=== PATIENT | female | born 1955 | race Caucasian/White ===

== ENCOUNTER 2018-06-30 09:27 | Inpatient (IN) ==
--- NOTE | 2018-06-30 09:46 | Emergency Department Note ---
Disposition Clinical Impression: Confusion, Hepatic encephalopathy Disposition: Still a Patient Condition: Fair Referrals: Andrae Rodriguez Jr, MD [Primary Care Provider] - Forms: ED Satisfaction Letter Altered Mental Status HPI - General Chief Complaint: ED Altered Mental Status Stated Complaint: AMS Time Seen by Provider: 06/30/18 09:30 Source: EMS Limitations: altered mental status Nursing Notes Reviewed: Yes Vital Signs Reviewed: Yes - History of Present Illness HPI Narrative: 63-year-old female presents from home with bedside via EMS. She complaint of altered mental status per . Onset last night with some mild confusion. She was more confused this morning upon awakening. Patient was assisted by to bedside commode. She was unable to get up and required assistance back to bed. was unable to provude adequate assistance and slowly lowered the patient to the floor. She did not fall and did not hit her head. With the and son-in-law, they are unable to get the patient from the floor. Squad was called. Previously, patient is ambulatory under her own effort and would have been able to provide assistance. Patient was diagnosed with fatty liver disease August of this year by her primary care physician via ultrasound. Patient wears an adult depends. She does have a history of UTI. No history of CVA, TIA, seizure disorder. ROS: Positive: As above Negative: Fever, chills, nausea, vomiting, chest pains, palpitations, dyspnea, diaphoresis. - Related Data Home Medications Medication Instructions Recorded Confirmed Escitalopram [Lexapro] 20 mg PO QAM 07/14/16 06/30/18 GlipiZIDE XL (24 HR) [Glucotrol XL] 20 mg PO BID 07/14/16 06/30/18 Hyoscyamine SL [Levsin Sl] 0.125 - 0.25 mg SL QID PRN 07/14/16 06/30/18 Omeprazole [PriLOSEC] 40 mg PO BID 07/14/16 06/30/18 Docusate Sodium [Stool Softener] 100 mg PO BID PRN 12/01/17 06/30/18 LORazepam [Ativan] 0.5 mg PO BID PRN 12/01/17 06/30/18 OxyCODONE/APAP 10/325 [Percocet 1 tab PO Q3H PRN 12/01/17 06/30/18 10/325 MG] Donepezil [Aricept] 10 mg PO HS 06/30/18 06/30/18 Ferrous Sulfate 325 mg PO DAILY 06/30/18 06/30/18 Furosemide [Lasix] 40 mg PO BID 06/30/18 06/30/18 Insulin NPH Human Isophane 10 unit SQ QAM PRN 06/30/18 06/30/18 [Novolin N] Lactulose 30 ml PO BID 06/30/18 06/30/18 Metoprolol Succinate 25 mg PO DAILY 06/30/18 06/30/18 Promethazine [Phenergan] 25 mg PO QID PRN 06/30/18 06/30/18 Quetiapine Fumarate [Seroquel] 100 mg PO DAILY 06/30/18 06/30/18 Quetiapine Fumarate [Seroquel] 200 mg PO HS 06/30/18 06/30/18 Rifaximin [Xifaxan] 550 mg PO BID 06/30/18 06/30/18 Allergies Allergy/AdvReac Type Severity Reaction Status Date / Time Penicillins Allergy Hives Verified 06/30/18 09:39 aripiprazole [From Abilify] AdvReac See Verified 06/30/18 09:39 Comments ziprasidone [From Geodon] AdvReac See Verified 06/30/18 09:39 Comments novacain Allergy Hives Uncoded 06/30/18 09:39 All systems ED: reviewed and negative except as stated. Review of Systems: As Per HPI Past Medical History - Past Medical History Medical history: Reports: diabetes, GERD, hypertension, liver disease, other Surgical history: Reports: appendectomy, cholecystectomy, herniorrhaphy, other Psychiatric history: Reports: depression, previous psychiatric hospitalization - Social History Smoking Status: Never smoker Smokeless Tobacco Status: No Alcohol use: Reports: none Drug use: Reports: none Physical Exam Vital Signs Reviewed General: Patient is alert however is not oriented. She is moving purposelessly on the ED cot and is not able to follow simple commands by staff as they attempt to place monitoring lead pads. Head: atraumatic, normocephalic Eye: normal appearance, PERRL, EOMI, no scleral icterus, no conjunctival injection ENT: mucous membranes moist, normal external ear exam Neck: normal inspection, trachea midline, full ROM Chest: normal inspection, symmetric chest rise Respiratory: Good respiratory effort. Bilateral breath sounds are clear without wheezing, crackles, or rhonchi. Cardiovascular: Regular rate and rhythm. No clicks, rubs, gallops, or murmors. Normal heart sounds. Abdomen: Bowel sounds present normoactive x-4 quadrants. Abdomen is soft, nondistended, and nontender. No guarding or rebound. Musculoskeletal: Spontaneously moving all extremities. Skin: warm, dry, intact. Neuro: No asymmetry in strength of upper or lower extremities. No facial droop. No slurring of speech. Psych: Patient's affect is appropriate for situation. - General Limitations: altered mental status General appearance: alert Course Course Narrative: Patient presents in his clinically altered. Concern for multiple potential etiologies including UTI, hyperlipidemia. CVA or intracerebral incident unlikely however, will CT head. Anticipate admission for continued evaluation monitoring. Chart check shows ultrasound in August of this year. Radiology impression: US/US liver IMPRESSION: 1. Cirrhotic appearance of the liver without focal mass. 2. Status post cholecystectomy. D/ / 12/04/2017 13:54:12 Melchor Plaza MD / cathy Interpreting Provider: Melchor Plaza MD dated 06/30/2018 at 09:30 interpreted as sinus rhythm with a rate of 88. [place] 205, QRS 103, QTC 515. Slightly prolonged QT interval. Normal axis. Nonspecific ST-T changes. Compared to previous EKG dated 07/14/2016 showing no acute ischemic changes or comparison. Patient has hyperammonia anemia with ammonia level to a 6. We will begin lactulose. She is unable to sit still for CT scan. Will provide 1 mg IV Ativan with great caution given hepatic metabolism of Ativan. On reevaluation, patient continues to have purposeless movements. She is unable to undergo CT head at this time. Will provide a second dose of 1 mg Ativan. Serum ammonia is above 200 likely causing patient's altered mentation; diagnosis of hepatic encephalopathy. Will provide 20 g lactulose. Chest x-ray unremarkable, urinalysis unremarkable. Sodium and potassium the lateralized or unremarkable. Patient does have mild leukocytopenia. Mild anemia consistent with baseline level. I discussed the above with the patient's family at bedside. They are agreeable to admission for continued evaluation monitoring. I above with the admitting hospitalist, Dr. Gutierrez, who agrees to accept the patient for continued evaluation monitoring for hepatic encephalopathy. Vital Signs Temperature 98.9 F 06/30/18 09:32 Pulse Rate 85 06/30/18 09:32 Respiratory Rate 18 06/30/18 09:32 Blood Pressure 105/85 06/30/18 09:32 O2 Sat by Pulse Oximetry 100 06/30/18 09:32 Temperature 98.9 F 06/30/18 09:32 Pulse Rate 88 06/30/18 09:56 Respiratory Rate 18 06/30/18 09:56 Blood Pressure 129/68 06/30/18 09:56 O2 Sat by Pulse Oximetry 99 06/30/18 09:56 Oxygen Delivery Oxygen Delivery Room Air Altered Mental Status - Lab Data Result diagrams: 06/30/18 09:40 06/30/18 09:40 Lab Results 06/30/18 06/30/18 06/30/18 Range/Units 09:03 09:40 09:40 WBC 3.3 L (4.3-11.1) K/mcL RBC 3.45 L (3.82-4.97) M/mcL Hgb 11.1 L (11.5-15.4) g/dL Hct 33.1 L (35.3-44.9) % MCV 95.9 (83.0-100.0) fL MCH 32.2 (28.0-33.3) pg MCHC 33.5 (31.6-35.5) g/dL RDW 14.0 (11.5-14.5) % Plt Count 65 L (140-400) K/mcL MPV 9.2 L (9.4-12.4) fL Immature Gran % 0.3 (0-4) % Seg Neutrophils % 46.3 % Lymphocytes % 37.0 % Monocytes % 10.9 % Eosinophils % 5.2 % Basophils % 0.3 % Neutrophils # 1.5 L (1.6-8.9) K/mcL Lymphocytes # 1.2 (0.6-4.6) K/mcL Monocytes # 0.4 (0.0-1.3) K/mcL Eosinophils # 0.2 (0.0-0.6) K/mcL Basophils # 0.0 (0.0-0.2) K/mcL PT 14.7 H (9.4-12.1) Seconds INR 1.3 APTT 38.1 H (26.0-36.0) Seconds Sodium (136-145) mEq/L Potassium (3.5-5.1) mEq/L Chloride (98-107) mEq/L Carbon Dioxide (23-29) mEq/L BUN (8-23) mg/dL Creatinine (0.60-1.20) mg/dL Est GFR ( Amer) (> 60) Est GFR (Non-Af Amer) (> 60) BUN/Creatinine Ratio (6-26) Glucose (70-105) mg/dL POC Glucose (70-99) mg/dL Calculated Osmolality (280-300) Calcium (8.6-10.3) mg/dL Total Bilirubin (0.3-1.0) mg/dL Direct Bilirubin (0.0-0.2) mg/dL Indirect Bilirubin (0.0-1.2) mg/dL AST (13-39) Units/L ALT (7-52) Units/L Alkaline Phosphatase (34-104) Units/L Ammonia 206 H (16-53) mcmol/L Troponin I (< 0.04) ng/mL Serum Total Protein (6.4-8.9) g/dL Albumin (3.5-5.7) g/dL Globulin (2.4-3.5) g/dL Albumin/Globulin Ratio (1.1-2.2) TSH (0.340-5.600) mcIU/mL 06/30/18 06/30/18 Range/Units 09:40 10:08 WBC (4.3-11.1) K/mcL RBC (3.82-4.97) M/mcL Hgb (11.5-15.4) g/dL Hct (35.3-44.9) % MCV (83.0-100.0) fL MCH (28.0-33.3) pg MCHC (31.6-35.5) g/dL RDW (11.5-14.5) % Plt Count (140-400) K/mcL MPV (9.4-12.4) fL Immature Gran % (0-4) % Seg Neutrophils % % Lymphocytes % % Monocytes % % Eosinophils % % Basophils % % Neutrophils # (1.6-8.9) K/mcL Lymphocytes # (0.6-4.6) K/mcL Monocytes # (0.0-1.3) K/mcL Eosinophils # (0.0-0.6) K/mcL Basophils # (0.0-0.2) K/mcL PT (9.4-12.1) Seconds INR APTT (26.0-36.0) Seconds Sodium 143 (136-145) mEq/L Potassium 3.5 (3.5-5.1) mEq/L Chloride 103 (98-107) mEq/L Carbon Dioxide 31 H (23-29) mEq/L BUN 12 (8-23) mg/dL Creatinine 0.76 (0.60-1.20) mg/dL Est GFR ( Amer) > 60 (> 60) Est GFR (Non-Af Amer) > 60 (> 60) BUN/Creatinine Ratio 16 (6-26) Glucose 133 H (70-105) mg/dL POC Glucose 136 H (70-99) mg/dL Calculated Osmolality 298 (280-300) Calcium 8.5 L (8.6-10.3) mg/dL Total Bilirubin 1.7 H (0.3-1.0) mg/dL Direct Bilirubin 0.5 H (0.0-0.2) mg/dL Indirect Bilirubin 1.2 (0.0-1.2) mg/dL AST 30 (13-39) Units/L ALT 13 (7-52) Units/L Alkaline Phosphatase 91 (34-104) Units/L Ammonia (16-53) mcmol/L Troponin I < 0.03 (< 0.04) ng/mL Serum Total Protein 6.8 (6.4-8.9) g/dL Albumin 2.9 L (3.5-5.7) g/dL Globulin 3.9 H (2.4-3.5) g/dL Albumin/Globulin Ratio 0.7 L (1.1-2.2) TSH 0.863 (0.340-5.600) mcIU/mL TPA Checklist - LKW: 3-4.5 hrs Add. Warnings/Precautions Patient/family understanding: The patient/family members have been counseled and understood the risk, benefit, and alternatives of treatment.
[2018-06-30 10:04] LABS: Basophils % 0.3 %; Eosinophils # 0.2 K/mcL (0.0-0.6); Eosinophils % 5.2 %; Hematocrit 33.1 % (35.3-44.9); Hemoglobin 11.1 g/dL (11.5-15.4); Immature Granulocytes % 0.3 % (0-4); Lymphocytes # 1.2 K/mcL (0.6-4.6); Mean Corpuscular HGB Conc 33.5 g/dL (31.6-35.5); Mean Corpuscular Hemoglobin 32.2 pg (28.0-33.3); Mean Corpuscular Volume 95.9 fL (83.0-100.0); Mean Platelet Volume 9.2 fL (9.4-12.4); Monocytes # 0.4 K/mcL (0.0-1.3); Monocytes % 10.9 %; Neutrophils # 1.5 K/mcL (1.6-8.9); Platelet Count 65 K/mcL (140-400); Red Blood Count 3.45 M/mcL (3.82-4.97); Segmented Neutrophils % 46.3 %
[2018-06-30 10:12] LABS: INR 1.3; Prothrombin Time 14.7 Seconds (9.4-12.1)
[2018-06-30 10:15] LABS: Activated Partial Thrombo Time 38.1 Seconds (26.0-36.0)
[2018-06-30 10:28] LABS: Troponin I < 0.03 ng/mL (< 0.04)
[2018-06-30 10:35] LABS: Alanine Aminotransferase 13 Units/L (7-52); Albumin 2.9 g/dL (3.5-5.7); Albumin/Globulin Ratio 0.7 (1.1-2.2); Alkaline Phosphatase 91 Units/L (34-104); Aspartate Amino Transferase 30 Units/L (13-39); BUN/Creatinine Ratio 16 (6-26); Bilirubin,Direct 0.5 mg/dL (0.0-0.2); Bilirubin,Indirect 1.2 mg/dL (0.0-1.2); Bilirubin,Total 1.7 mg/dL (0.3-1.0); Blood Urea Nitrogen 12 mg/dL (8-23); Calcium 8.5 mg/dL (8.6-10.3); Carbon Dioxide 31 mEq/L (23-29); Chloride 103 mEq/L (98-107); Globulin 3.9 g/dL (2.4-3.5); Glucose 133 mg/dL (70-105); Osmolality,Calculated 298 (280-300); Potassium 3.5 mEq/L (3.5-5.1); Sodium 143 mEq/L (136-145); Total Protein 6.8 g/dL (6.4-8.9); eGFR For Non-African Americans > 60 (> 60)
[2018-06-30] MEDS ORDERED: Lactulose Oral Soln 20 GM/30 ML UDC PO ONE ×2 (10:40→12:15)
[2018-06-30 10:41] LABS: Thyroid Stimulating Hormone 0.863 mcIU/mL (0.340-5.600)
[2018-06-30] MEDS ORDERED: *HR* LORazepam 2 MG/ML VIAL IVP STA (10:41)
[2018-06-30] MEDS ORDERED: *HR* LORazepam 2 MG/ML VIAL IVP ONE ×2 (11:50→23:57)
--- NOTE | 2018-06-30 12:12 | Internal Med History&Physical ---
Date of Encounter: 06/30/18 Time of Encounter: 12:10 Internal Medicine - H&P: HPI Chief complaint: Confusion Admitted From: Home Plans for Post Hospital Care: Home History of present illness: Ms. Romero is a 63 year old female with medical history of hypertension, depression and anxiety, chronic opiate dependence, fatty liver disease with cirrhosis, chronic leukopenia and thrombocytopenia Patient is seen and evaluated at the bedside with her partner At the time of review, patient is thrashing around in bed attempting to get out of bed and requesting to use the bathroom. She is completely disoriented and is unable to provide a history. According to her partner for the past 2 years the patient has been having multiple episodes of confusion, multiple recurrent falls and was recently diagnosed by her primary care physician this year of liver cirrhosis due to fatty liver. He reports that she has been having more confusion during the and awake at night since May, but he presented to the emergency room across the patient was not improving. The patient takes lactulose at home daily, and according to her partner she had multiple bowel movements yesterday. But her mental status has continued to worsen. He denies fever or chills, he reports he had a following up with neurology in this facility, concerning patient's chronic encephalopathy and also with oncology for patient's chronic leukopenia and thrombocytopenia. He denies any recent falls, he denies any trauma, he reports compliance with her psychiatric and pain medications as well as benzodiazepines, there has been no recent changes to her medication. Workup in the emergency room shows an unremarkable chest x-ray and EKG, liver function tests is at baseline, leukopenia and thrombocytopenia are at baseline, renal function tests is normal, coagulation panel with elevated PT 14.7, INR 5.3. Ammonia 206 Urine analysis is unremarkable for infection TSH is within normal limit The ER was unable to do any head imaging due to patient's restlessness despite receiving 2 doses of IV Ativan. The patient will be admitted as inpatient for acute on chronic encephalopathy likely due to hepatic encephalopathy. Her partner at the bedside states she has no advance directives, she is full code. Past Med Surg Social Fam HX - Past Medical History Medical history: diabetes, GERD, hypertension, liver disease, other Additional medical history: IBS Psychiatric history: depression, previous psychiatric hospitalization - Past Surgical History Surgical History: appendectomy, cholecystectomy, herniorrhaphy, other - Social History Smoking Status: Never smoker Smokeless Tobacco Status: No Alcohol use: none Drug use: none Internal Medicine - H&P: Meds Escitalopram [Lexapro] 20 mg PO QAM 07/14/16 [History] GlipiZIDE XL (24 HR) [Glucotrol XL] 20 mg PO BID 07/14/16 [History] Hyoscyamine SL [Levsin Sl] 0.125 - 0.25 mg SL QID PRN 07/14/16 [History] Omeprazole [PriLOSEC] 40 mg PO BID 07/14/16 [History] Docusate Sodium [Stool Softener] 100 mg PO BID PRN 12/01/17 [History] LORazepam [Ativan] 0.5 mg PO BID PRN 12/01/17 [History] OxyCODONE/APAP 10/325 [Percocet 10/325 MG] 1 tab PO Q3H PRN 12/01/17 [History] Donepezil [Aricept] 10 mg PO HS 06/30/18 [History] Ferrous Sulfate 325 mg PO DAILY 06/30/18 [History] Furosemide [Lasix] 40 mg PO BID 06/30/18 [History] Insulin NPH Human Isophane [Novolin N] 10 unit SQ QAM PRN 06/30/18 [History] Lactulose 30 ml PO BID 06/30/18 [History] Metoprolol Succinate 25 mg PO DAILY 06/30/18 [History] Promethazine [Phenergan] 25 mg PO QID PRN 06/30/18 [History] Quetiapine Fumarate [Seroquel] 100 mg PO DAILY 06/30/18 [History] Quetiapine Fumarate [Seroquel] 200 mg PO HS 06/30/18 [History] Rifaximin [Xifaxan] 550 mg PO BID 06/30/18 [History] Allergy/AdvReac Type Severity Reaction Status Date / Time Penicillins Allergy Hives Verified 06/30/18 09:39 aripiprazole [From Abilify] AdvReac See Verified 06/30/18 09:39 Comments ziprasidone [From Geodon] AdvReac See Verified 06/30/18 09:39 Comments novacain Allergy Hives Uncoded 06/30/18 09:39 ROS unobtainable: due to mental status All Systems PM: A 10-system review of systems was performed and is negative for pertinent findings except as documented above in the HPI. - Constitutional Vitals: Temp Pulse Resp BP Pulse Ox 98.9 F 88 18 129/68 99 06/30/18 09:32 06/30/18 09:56 06/30/18 09:56 06/30/18 09:56 06/30/18 09:56 General appearance: Present: A&O X 0 (Completely disoriented, uncooperative, thrashing around in bed) Exam: confused, with comprehensible speech requesting for morbid attendants, disoriented - Head Head exam: Present: atraumatic - Eye Eye exam: Present: conjuntiva pink, sclera anicteric - ENT ENT exam: Present: mucous membranes moist - Neck Neck exam general surgery: Present: normal inspection - Respiratory Respiratory exam: Present: CTAB - Cardiovascular Cardiovascular exam: Present: RRR, +S1, +S2. Absent: systolic murmur - GI/Abdominal GI/Abdominal exam: Present: normal bowel sounds, soft, no peritoneal signs. Absent: guarding, tenderness - Extremities Exam Extremities exam: Present: normal inspection. Absent: pedal edema - Neurological Exam Neurological exam: Present: altered. Absent: pronater drift, facial droop, speech deficit - Psychiatric Psychiatric exam: Present: agitated - Skin Skin exam: Present: normal color. Absent: rash Internal Med - H&P Results - Labs CBC & Chem 7: 06/30/18 09:40 06/30/18 09:40 Labs: Short CBC 06/30/18 Range/Units 09:40 WBC 3.3 L (4.3-11.1) K/mcL Hgb 11.1 L (11.5-15.4) g/dL Hct 33.1 L (35.3-44.9) % Plt Count 65 L (140-400) K/mcL Neutrophils # 1.5 L (1.6-8.9) K/mcL BMP 06/30/18 09:40 Sodium 143 Potassium 3.5 Chloride 103 Carbon Dioxide 31 H BUN 12 Creatinine 0.76 Glucose 133 H Calcium 8.5 L Cardiac Enzymes 06/30/18 Range/Units 09:40 Troponin I < 0.03 (< 0.04) ng/mL Liver Function 06/30/18 Range/Units 09:40 Total Bilirubin 1.7 H (0.3-1.0) mg/dL Direct Bilirubin 0.5 H (0.0-0.2) mg/dL AST 30 (13-39) Units/L ALT 13 (7-52) Units/L Alkaline Phosphatase 91 (34-104) Units/L Albumin 2.9 L (3.5-5.7) g/dL - Impressions ITS Impressions Chest X-Ray 06/30/18 09:40 IMPRESSION: No evidence for acute cardiopulmonary process. D/ / Daniele Davis MD / Daniele Davis MD Interpreting Provider: Daniele Davis MD - Assessment and plan (1) Acute metabolic encephalopathy Current Visit: Yes Status: Acute Assessment and plan: Patient with chart review showing multiple episodes of encephalopathy in this facility, negative Gabriela mutation, recurrent falls and dementia, Cirrhotic liver with documentation of encephalopathy in nearly all visits Following up with Neurology per , will consult Ammonia level 206 No UA done, will request, place Herbert EEG done in 06/29/2018 showed moderate generalized encephalopathy, commonly associated with hepatic or renal etiologies EEG 10/[address] pending, patient unable to stay still, myrtle request imaging when patient is more sedated Continue lactulose TID to achieve 3-4 bowel movements daily Give lactulose enema STAT Patient is protecting her airway Aspiration and Fall precautions Patient is high risk of decompensation , airway compromise She is full code (2) Liver cirrhosis Current Visit: Yes Status: Chronic Assessment and plan: Will obtain USS to assess for ascites when patient is more stable No ascites demonstrable on exam Qualifiers: Qualified Code(s): K74.60 - Unspecified cirrhosis of liver (3) [place]'s disease Current Visit: Yes Status: Suspected Assessment and plan: Rued out per testing, test reported as patient haciving 2 normal alleles neurology consulted (4) Anxiety Current Visit: Yes Status: Chronic Assessment and plan: Continue home meds Monitor for BZP withdrawal (5) DVT prophylaxis Current Visit: Yes Status: Acute Assessment and plan: SCDs, due to thrombocytopenia (6) Depression Current Visit: Yes Status: Chronic Assessment and plan: Continue home meds Qualifiers: Qualified Code(s): F32.9 - Major depressive disorder, single episode, unspecified (7) Chronic pain syndrome Current Visit: Yes Status: Chronic Assessment and plan: Continue home opiates Monitor for withdrawals (8) Diabetes Current Visit: Yes Status: Chronic Assessment and plan: Sliding scale insulin for now FSACHS ADA diet, as tolerated Qualifiers: Qualified Code(s): E11.9 - Type 2 diabetes mellitus without complications; Z79.4 - roasterman (current) use of insulin (9) Leukopenia Current Visit: Yes Status: Chronic Assessment and plan: Chronic, stable Qualifiers: Qualified Code(s): D72.819 - Decreased white blood cell count, unspecified (10) Thrombocytopenia Current Visit: Yes Status: Chronic Assessment and plan: Chronic, stable (11) Morbid obesity Current Visit: Yes Status: Chronic Assessment and plan: Lifestyle modification - Time Spent With Patient Total time spent is greater than 50% in coordination of care (as documented) at patient's floor/unit and/or counseling patient:
[2018-06-30] MEDS ORDERED: Naloxone 0.4 MG/ML INJ IVP PRN (12:13)
[2018-06-30] MEDS ORDERED: Dextrose Gel 15 GM/37.5 ML TUBE PO PRN ×2 (12:21)
[2018-06-30] MEDS ORDERED: D5% in Water 1,000 ML IVC PRN (12:21)
[2018-06-30] MEDS ORDERED: *HR* Dextrose 50 % in Water (Syg) 50 ML SYRINGE IVP PRN (12:21)
[2018-06-30] MEDS ORDERED: Lactulose 200 GM, Sodium Chloride IRRigation 700 ML RC ONE (15:14)
--- NOTE | 2018-06-30 15:24 | Neurology - Consult Note ---
<Abhi Junior - Last Filed: 06/30/18 15:17> Date of Encounter: 06/30/18 Time of Encounter: 15:19 Assessment and Plan (1) Acute metabolic encephalopathy Current Visit: Yes Status: Acute Likely is acute hepatic encephalopathy with baseline dementia. Patient's ammonia level is 206. And patient does not comply with her lactulose medication as well as does not have 3 to 6 bowel movements a day. We would like to obtain a CT of the head but this has been difficult as patient is very restless. She follows Dr. Tristan, neurologist and has been worked up for dementia, is on Aricept. She had a recent EEG which showed moderate metabolic encephalopathy secondary to hepatic or renal etiology. (2) Liver cirrhosis Current Visit: Yes Status: Chronic Qualifiers: Hepatic cirrhosis type: unspecified hepatic cirrhosis Ascites presence: unspecified Qualified Code(s): K74.60 - Unspecified cirrhosis of liver History of Present Illness Chief complaint: ams HPI: Ms. Romero is a 63 year old female with history of cirrhosis secondary to fatty liver disease presents with chief complaint of altered mental status. Her reports that patient woke up this morning and was nonverbal, awake but did not respond to any of his questions and did not talk to him. The night before patient was verbal, ambulated independently and alert and oriented 3. Currently during my examination patient is in bed very agitated, eyes open, not responding to any questions or commands. Patient has a history of dementia is on Aricept and it follows Dr. Tristan. She has had recent EEG that shows moderate encephalopathy which is associated with hepatic and renal etiologies. According to patient takes rifaximin every day but does not take lactulose every day. Her last bowel movement was yesterday and she rarely has more than 2 or 3 bowel movements a week. The emergency department patient's ammonia level was found to be 206, TSH was within normal limits. They were unable to obtain CT of the head as patient was very restless even after giving 2 doses of Ativan. Past Med Surg Social Fam HX - Past Medical History Medical history: diabetes, GERD, hypertension, liver disease, other Additional medical history: IBS Psychiatric history: depression, previous psychiatric hospitalization - Past Surgical History Surgical History: appendectomy, cholecystectomy, herniorrhaphy, other - Social History Smoking Status: Never smoker Smokeless Tobacco Status: No Alcohol use: none Drug use: none Medications and Allergies Escitalopram [Lexapro] 20 mg PO QAM 07/14/16 [History] GlipiZIDE XL (24 HR) [Glucotrol XL] 20 mg PO BID 07/14/16 [History] Hyoscyamine SL [Levsin Sl] 0.125 - 0.25 mg SL QID PRN 07/14/16 [History] Omeprazole [PriLOSEC] 40 mg PO BID 07/14/16 [History] Docusate Sodium [Stool Softener] 100 mg PO BID PRN 12/01/17 [History] LORazepam [Ativan] 0.5 mg PO BID PRN 12/01/17 [History] OxyCODONE/APAP 10/325 [Percocet 10/325 MG] 1 tab PO Q3H PRN 12/01/17 [History] Donepezil [Aricept] 10 mg PO HS 06/30/18 [History] Ferrous Sulfate 325 mg PO DAILY 06/30/18 [History] Furosemide [Lasix] 40 mg PO BID 06/30/18 [History] Insulin NPH Human Isophane [Novolin N] 10 unit SQ QAM PRN 06/30/18 [History] Lactulose 30 ml PO BID 06/30/18 [History] Metoprolol Succinate 25 mg PO DAILY 06/30/18 [History] Promethazine [Phenergan] 25 mg PO QID PRN 06/30/18 [History] Quetiapine Fumarate [Seroquel] 100 mg PO DAILY 06/30/18 [History] Quetiapine Fumarate [Seroquel] 200 mg PO HS 06/30/18 [History] Rifaximin [Xifaxan] 550 mg PO BID 06/30/18 [History] Allergy/AdvReac Type Severity Reaction Status Date / Time Penicillins Allergy Hives Verified 06/30/18 09:39 aripiprazole [From Abilify] AdvReac See Verified 06/30/18 09:39 Comments ziprasidone [From Geodon] AdvReac See Verified 06/30/18 09:39 Comments novacain Allergy Hives Uncoded 06/30/18 09:39 ROS unobtainable: due to mental status All Systems: The remainder of the systems were reviewed and are negative Physical Examination - Vital Signs Vital Signs: Initial Vital Signs Temp Pulse Resp BP Pulse Ox 98.9 F 85 18 105/85 100 06/30/18 09:32 06/30/18 09:32 06/30/18 09:32 06/30/18 09:32 06/30/18 09:32 - Exam Exam: General: pleasant, without distress HEENT: Head atraumatic, normocephalic, unable to examine due to patient's mental status Neck: nontender to palpation, absent lymphadenopathy, Cardiovascualr: Regular rate and rhythm with no murmur, absent gallops or rubs, absent pedal edema, radial pulses 2 out of 4 Lungs: Clear to auscultation bilaterally, not in respiratory distress Abdomen: Soft nontender, nondistended positive bowel sounds, Skin: warm and dry, absent rash, absent open wounds and nodules MSK: absent clubbing, cyanosis, joints without swelling Psych: She takes, restless - Constitutional General appearance: uncomfortable - Neurologic Mental Status Examination: Patient is restless, not responding to verbal commands or answering any questions. Neurological exam is very limited secondary to this. She is able to move all 4 extremities as seen she grabs onto her bed and tries to sit up. Her eyes are open spontaneously. GCS 10. Results - Laboratory Findings CBC and BMP: 06/30/18 09:40 06/30/18 09:40 Abnormal lab findings: Abnormal lab results WBC 3.3 K/mcL (4.3-11.1) L 06/30/18 09:40 RBC 3.45 M/mcL (3.82-4.97) L 06/30/18 09:40 Hgb 11.1 g/dL (11.5-15.4) L 06/30/18 09:40 Hct 33.1 % (35.3-44.9) L 06/30/18 09:40 Plt Count 65 K/mcL (140-400) L 06/30/18 09:40 MPV 9.2 fL (9.4-12.4) L 06/30/18 09:40 Neutrophils # 1.5 K/mcL (1.6-8.9) L 06/30/18 09:40 PT 14.7 Seconds (9.4-12.1) H 06/30/18 09:40 APTT 38.1 Seconds (26.0-36.0) H 06/30/18 09:40 Carbon Dioxide 31 mEq/L (23-29) H 06/30/18 09:40 Glucose 133 mg/dL (70-105) H 06/30/18 09:40 POC Glucose 136 mg/dL (70-99) H 06/30/18 10:08 Calcium 8.5 mg/dL (8.6-10.3) L 06/30/18 09:40 Total Bilirubin 1.7 mg/dL (0.3-1.0) H 06/30/18 09:40 Direct Bilirubin 0.5 mg/dL (0.0-0.2) H 06/30/18 09:40 Ammonia 206 mcmol/L (16-53) H 06/30/18 09:03 Albumin 2.9 g/dL (3.5-5.7) L 06/30/18 09:40 Globulin 3.9 g/dL (2.4-3.5) H 06/30/18 09:40 Albumin/Globulin Ratio 0.7 (1.1-2.2) L 06/30/18 09:40 Consult Discharge Plan - Plan Referrals: Maty Celestin [Resident] - 07/28/18 4:20 pm Andrae Rodriguez Jr, MD [Primary Care Provider] - 07/15/18 9:15 am James Tristan DO [Partnered Physician] - 09/30/18 9:45 am <Shira Larose I - Last Filed: 07/01/18 12:05> Date of Encounter: 06/30/18 Assessment and Plan (1) Acute metabolic encephalopathy Current Visit: Yes Status: Acute Pt was seen and examined, my medical decision was reviewed with the Resident Physician, I agree with the documented findings, disposition and treatment plas as described except to the extent set forth below. Limited neurological examination as patient is very restless shows just received an Ativan we may have to increase the dosage once a stable suggest getting a CT scan of the head she just had a EEG as an outpatient we will review it other treatment is as per primary team is strongly recommend starting her back on lactulose as Hyper ammonimia is likely the reason for her acute mental status changes Shira Larose MD History of Present Illness HPI: Ms. Romero is a 63 year old female All Systems: The remainder of the systems were reviewed and are negative Physical Examination - Vital Signs Vital Signs: Initial Vital Signs Temp Pulse Resp BP Pulse Ox 98.9 F 85 18 105/85 100 06/30/18 09:32 06/30/18 09:32 06/30/18 09:32 06/30/18 09:32 06/30/18 09:32 Results - Laboratory Findings CBC and BMP: 07/01/18 04:21 07/01/18 04:21 Abnormal lab findings: Abnormal lab results RBC 3.40 M/mcL (3.82-4.97) L 07/01/18 04:21 Hgb 11.0 g/dL (11.5-15.4) L 07/01/18 04:21 Hct 32.4 % (35.3-44.9) L 07/01/18 04:21 Plt Count 70 K/mcL (140-400) L 07/01/18 04:21 PT 14.7 Seconds (9.4-12.1) H 06/30/18 09:40 APTT 38.1 Seconds (26.0-36.0) H 06/30/18 09:40 Potassium 3.2 mEq/L (3.5-5.1) L 07/01/18 04:21 POC Glucose 160 mg/dL (70-99) H 06/30/18 20:18 Total Bilirubin 2.5 mg/dL (0.3-1.0) H 07/01/18 04:21 Direct Bilirubin 0.5 mg/dL (0.0-0.2) H 06/30/18 09:40 AST 383 Units/L (13-39) H 07/01/18 04:21 Ammonia 206 mcmol/L (16-53) H 06/30/18 09:03 Albumin 3.1 g/dL (3.5-5.7) L 07/01/18 04:21 Globulin 3.8 g/dL (2.4-3.5) H 07/01/18 04:21 Albumin/Globulin Ratio 0.8 (1.1-2.2) L 07/01/18 04:21 Urine Blood Trace (Negative) H 06/30/18 18:07 Urine Bilirubin Small (Negative) H 06/30/18 18:07 Urine Urobilinogen >=8.0 mg/dL (Normal) H 06/30/18 18:07 Ur Squamous Epith Cells Many per lpf (None-Few) H 06/30/18 18:07
[2018-06-30 18:23] LABS: Bilirubin,Urine Small (Negative); Blood,Urine Trace (Negative); Clarity,Urine Clear (Clear); Color,Urine Dark Yellow (Yellow); Glucose,Urine (UA) Normal (Normal); Ketones,Urine Negative (Negative); Leukocyte Esterase,Urine Negative (Negative); Nitrite,Urine Negative (Negative); Protein,Urine Negative (Neg-Trace); Specific Gravity,Urine 1.011 (1.010-1.025); Urobilinogen,Urine >=8.0 mg/dL (Normal)
[2018-06-30 18:26] LABS: Bacteria,Urine None Seen per hpf (None-Few); Hyaline Casts,Urine None Seen per lpf (None-Few); Squamous Epithelial Cell,Urine Many per lpf (None-Few); WBC,Urine 0-3 per hpf (0-3)
[2018-06-30 18:48] LABS: RBC,Urine 0-3 per hpf (0-3)
[2018-06-30] MEDS: Insulin LISPRO 300 UNITS/3 ML VIAL SQ SCH ×2 (19:07→21:47)
[2018-06-30] MEDS: Lactulose Oral Soln 20 GM/30 ML UDC PO SCH (21:23)
[2018-06-30] MEDS: *HR* LORazepam 0.5 MG TABLET PO SCH (21:26)
[2018-07-01] MEDS ORDERED: *HR* LORazepam 2 MG/ML VIAL ONE (00:02)
[2018-07-01 05:10] LABS: Lymphocytes % 23.1 %; Mean Corpuscular Hemoglobin 32.4 pg (28.0-33.3); Red Cell Distribution Width 14.3 % (11.5-14.5)
[2018-07-01 05:12] LABS: Basophils % 0.3 %; Eosinophils # 0.1 K/mcL (0.0-0.6); Eosinophils % 1.4 %; Hematocrit 32.4 % (35.3-44.9); Immature Granulocytes % 0.7 % (0-4); Immature Platelets 1.2 % (1.1-6.1); Lymphocytes # 1.4 K/mcL (0.6-4.6); Mean Corpuscular Volume 95.3 fL (83.0-100.0); Monocytes # 0.7 K/mcL (0.0-1.3); Monocytes % 12.2 %; Neutrophils # 3.7 K/mcL (1.6-8.9); Segmented Neutrophils % 62.3 %
[2018-07-01 05:13] LABS: Platelet Count 70 K/mcL (140-400)
[2018-07-01 05:34] LABS: Alanine Aminotransferase 47 Units/L (7-52); Albumin 3.1 g/dL (3.5-5.7); Albumin/Globulin Ratio 0.8 (1.1-2.2); Alkaline Phosphatase 83 Units/L (34-104); Aspartate Amino Transferase 383 Units/L (13-39); BUN/Creatinine Ratio 18 (6-26); Bilirubin,Total 2.5 mg/dL (0.3-1.0); Blood Urea Nitrogen 12 mg/dL (8-23); Calcium 9.1 mg/dL (8.6-10.3); Carbon Dioxide 27 mEq/L (23-29); Chloride 106 mEq/L (98-107); Chol/HDL Ratio 2.6 (0-4.9); Cholesterol 105 mg/dL (< 200); Globulin 3.8 g/dL (2.4-3.5); Glucose 102 mg/dL (70-105); HDL Cholesterol 40 mg/dL (40-59); LDL Cholesterol,Calculated 49 mg/dL (0-99); Osmolality,Calculated 298 (280-300); Potassium 3.2 mEq/L (3.5-5.1); Sodium 144 mEq/L (136-145); Total Protein 6.9 g/dL (6.4-8.9); Triglycerides 82 mg/dL (< 150); eGFR For Non-African Americans > 60 (> 60)
[2018-07-01] MEDS: Metoprolol XL (24 HR) Succ 25 MG TAB.ER.24H PO SCH (08:15)
[2018-07-01] MEDS: Lactulose Oral Soln 20 GM/30 ML UDC PO SCH ×2 (08:15→20:46)
[2018-07-01] MEDS: Furosemide 40 MG TABLET PO SCH ×2 (08:16→18:49)
[2018-07-01] MEDS: *HR* LORazepam 0.5 MG TABLET PO SCH ×2 (08:16→20:47)
[2018-07-01] MEDS: Insulin LISPRO 300 UNITS/3 ML VIAL SQ SCH ×4 (08:16→20:35)
[2018-07-01] MEDS ORDERED: NON-FORMULARY MEDICATION 1 EACH EACH (Omeprazole [Prilosec] 40 MG) PO SCH (09:00)
--- NOTE | 2018-07-01 10:22 | Electrocardiograph Report ---
[facility] Test Date: 2018-06-30 Pat Name: Marli Romero Department: EXAM9 Room: 3B41 Gender: F [employer]: : [id number] Requested By: Eros Medina Order Number: [id number] Reading MD: Andrae Rodriguez Measurements Intervals [place] Rate: 88 P: 79 NM: 205 QRS: 83 QRSD: 103 T: 41 QT: 425 QTc: 515 Interpretive Statements Sinus rhythm Borderline right axis deviation Prolonged QT interval Electronically Signed On 07-01-2018 10:21:07 EST by Andrae Rodriguez
--- NOTE | 2018-07-01 10:34 | Neurology Progress Note ---
<Abhi Junior - Last Filed: 07/01/18 10:30> Date of Encounter: 07/01/18 Time of Encounter: 10:34 Assessment and Plan (1) Acute metabolic encephalopathy Current Visit: Yes Status: Acute Patient encephalopathy secondary to liver cirrhosis. Her mental status is improved and last 24 hours. We would still like to obtain CT of the head if patient is able to obtain it. Recommend continue aricept, lactulose and rifaximin. (2) Liver cirrhosis Current Visit: Yes Status: Chronic Qualifiers: Hepatic cirrhosis type: unspecified hepatic cirrhosis Ascites presence: unspecified Qualified Code(s): K74.60 - Unspecified cirrhosis of liver Subjective Principal diagnosis: Hepatic encephalopathy Interval history: I will patient continues to be restless she is verbal today and answering simple questions. She even stated she would like to go home. Patient had 3 bowel movements in the last 24 hours. Objective - Constitutional Vitals: Temp Pulse Resp BP Pulse Ox 99.2 F 113 25 164/67 96 07/01/18 07:39 07/01/18 07:39 07/01/18 07:39 07/01/18 07:39 07/01/18 08:16 - Neurological Exam Motor Examination: Present: full strength in all major muscle groups Motor examination - right side: 5/5: deltoids, biceps, triceps, wrist flexion, wrist extension, escrow closer, hip flexors, tibialis Anterior, quadriceps, toe extension (EHL), plantarflexion Motor examination - left side: 5/5: deltoids, biceps, triceps, wrist flexion, wrist extension, hip flexors, escrow closer, quadriceps, tibialis Anterior, toe extension (EHL), plantarflexion Reflex and gait examination: intact Reflexes: Biceps: 2+, Triceps: 2+, Brachioradialis: 2+, Patella: 2+, Achilles: 2+ Mental Status Examination: Present: awake, alert, oriented to person, oriented to place, follows commands appropriately, answers questions appropriately Cranial nerve examination: Present: PERRL, EOMI, no facial asymmetry is present - Other Additional findings: General: Restless HEENT: Head atraumatic, normocephalic, unable to examine due to patient's mental status Neck: nontender to palpation, absent lymphadenopathy, Cardiovascualr: Regular rate and rhythm with no murmur, absent gallops or rubs, absent pedal edema, radial pulses 2 out of 4 Lungs: Clear to auscultation bilaterally, not in respiratory distress Abdomen: Soft nontender, nondistended positive bowel sounds, Skin: warm and dry, absent rash, absent open wounds and nodules MSK: absent clubbing, cyanosis, joints without swelling Psych: Restless, awake, alert and oriented to self, place not situation Results - Laboratory Findings CBC and BMP: 07/01/18 04:21 07/01/18 04:21 Abnormal lab findings: Abnormal lab results RBC 3.40 M/mcL (3.82-4.97) L 07/01/18 04:21 Hgb 11.0 g/dL (11.5-15.4) L 07/01/18 04:21 Hct 32.4 % (35.3-44.9) L 07/01/18 04:21 Plt Count 70 K/mcL (140-400) L 07/01/18 04:21 PT 14.7 Seconds (9.4-12.1) H 06/30/18 09:40 APTT 38.1 Seconds (26.0-36.0) H 06/30/18 09:40 Potassium 3.2 mEq/L (3.5-5.1) L 07/01/18 04:21 POC Glucose 160 mg/dL (70-99) H 06/30/18 20:18 Total Bilirubin 2.5 mg/dL (0.3-1.0) H 07/01/18 04:21 Direct Bilirubin 0.5 mg/dL (0.0-0.2) H 06/30/18 09:40 AST 383 Units/L (13-39) H 07/01/18 04:21 Ammonia 206 mcmol/L (16-53) H 06/30/18 09:03 Albumin 3.1 g/dL (3.5-5.7) L 07/01/18 04:21 Globulin 3.8 g/dL (2.4-3.5) H 07/01/18 04:21 Albumin/Globulin Ratio 0.8 (1.1-2.2) L 07/01/18 04:21 Urine Blood Trace (Negative) H 06/30/18 18:07 Urine Bilirubin Small (Negative) H 06/30/18 18:07 Urine Urobilinogen >=8.0 mg/dL (Normal) H 06/30/18 18:07 Ur Squamous Epith Cells Many per lpf (None-Few) H 06/30/18 18:07 Consult Discharge Plan - Plan Referrals: Maty Celestin [Resident] - 07/28/18 4:20 pm Andrae Rodriguez Jr, MD [Primary Care Provider] - 07/15/18 9:15 am James Tristan DO [Partnered Physician] - 09/30/18 9:45 am <Shira Larose I - Last Filed: 07/01/18 12:07> Date of Encounter: 07/01/18 Assessment and Plan (1) Acute metabolic encephalopathy Current Visit: Yes Status: Acute Pt was seen and examined, my medical decision was reviewed with the Resident Physician, I agree with the documented findings, disposition and treatment plas as described except to the extent set forth below. Slowly improving alert awake and oriented able to have some conversation is still slightly restless suggest getting a CT scan of the head when is stable. Other treatment is as per primary team no evidence of any clinical seizures or any meningitis on examination or on the labs Shira Larose MD Objective - Constitutional Vitals: Temp Pulse Resp BP Pulse Ox 99.2 F 113 25 164/67 96 07/01/18 07:39 07/01/18 07:39 07/01/18 07:39 07/01/18 07:39 07/01/18 08:16 Results - Laboratory Findings CBC and BMP: 07/01/18 04:21 07/01/18 04:21 Abnormal lab findings: Abnormal lab results RBC 3.40 M/mcL (3.82-4.97) L 07/01/18 04:21 Hgb 11.0 g/dL (11.5-15.4) L 07/01/18 04:21 Hct 32.4 % (35.3-44.9) L 07/01/18 04:21 Plt Count 70 K/mcL (140-400) L 07/01/18 04:21 PT 14.7 Seconds (9.4-12.1) H 06/30/18 09:40 APTT 38.1 Seconds (26.0-36.0) H 06/30/18 09:40 Potassium 3.2 mEq/L (3.5-5.1) L 07/01/18 04:21 POC Glucose 160 mg/dL (70-99) H 06/30/18 20:18 Total Bilirubin 2.5 mg/dL (0.3-1.0) H 07/01/18 04:21 Direct Bilirubin 0.5 mg/dL (0.0-0.2) H 06/30/18 09:40 AST 383 Units/L (13-39) H 07/01/18 04:21 Ammonia 206 mcmol/L (16-53) H 06/30/18 09:03 Albumin 3.1 g/dL (3.5-5.7) L 07/01/18 04:21 Globulin 3.8 g/dL (2.4-3.5) H 07/01/18 04:21 Albumin/Globulin Ratio 0.8 (1.1-2.2) L 07/01/18 04:21 Urine Blood Trace (Negative) H 06/30/18 18:07 Urine Bilirubin Small (Negative) H 06/30/18 18:07 Urine Urobilinogen >=8.0 mg/dL (Normal) H 06/30/18 18:07 Ur Squamous Epith Cells Many per lpf (None-Few) H 06/30/18 18:07
--- NOTE | 2018-07-01 13:31 | Internal Med Progress Note ---
Hospitalist Progress Note - Encounter Date of Encounter: 07/01/18 Time of Encounter: 08:28 - Subjective Interval History: patient was seen adn examiend at bedside, Hua (self) does answer some simple questions. , continues to call for her , restless, moving all extremities. as per at bedside. she was diagnosed with cirrhosis secondary to "fatty liver" and follows at [facility]. he reports that this is a new diagnosis for her. he reports that they are very compliant with follow ups and she is compliant with her medications. she follows with Dr. Dyson at [facility] for pancytopenia - Exam Vitals: Temp Pulse Resp BP Pulse Ox 100.1 F H 107 26 147/81 98 07/01/18 12:19 07/01/18 12:19 07/01/18 12:19 07/01/18 12:19 07/01/18 12:19 Exam: General: restless, alert, moving all extremities, confused Head: atraumatic, normocephalic, Eye: normal appearance, PERRL, no scleral icterus, no conjunctival injection ENT: mucous membranes moist, normal external ear exam Neck: normal inspection, trachea midline, full ROM, no carotid bruits Chest: normal inspection, symmetric chest rise Respiratory: distant breath sounds secondary to body habitus no crackles or wheezing heard . Cardiovascular: tachycardic s1 and s2 No clicks, rubs, gallops, or murmors. Abdomen: Bowel sounds present normoactive x-4 quadrants. Abdomen is soft, nondistended. no Epigastric tenderness. No guarding or rebound. No organomegaly noted, obese could not appreciate ascitis musculoskeletal: Spontaneously moving all extremities. no edema, no calf tenderness Skin: warm, dry, intact. Neuro: Alert and oriented x1 , restless, moving all extremities, no facial droop, speech is comprehendible, could not appreciate tremors Psych: Patient's affect is normal - Assessment and Plan (1) Acute metabolic encephalopathy Current Visit: Yes Status: Acute Assessment and Plan: Patient with chart review showing multiple episodes of encephalopathy in this facility, negative Gabriela mutation, recurrent falls and dementia, Cirrhotic liver with documentation of encephalopathy in nearly all visits mental status has improved as compared to yesterday Ammonia level 206 trended down to 96 UA negative EEG done in 06/29/2018 showed moderate generalized encephalopathy, commonly associated with hepatic or renal etiologies EEG 10/2017 similar finding neurology on board Head CT pending- patient is restless despite sedatives lactulose TID to achieve 3-4 bowel movements daily Patient is protecting her airway Aspiration and Fall precautions low threshold for intubation started on ceftriaxone as she is high risk for SBP RUQ US ordered at bedside - if signs of ascitis will call IR for paracentesis (2) Sepsis Current Visit: Yes Status: Acute Assessment and Plan: tachycardic 107 tachypnic 26 low grade fever of 100.1 bcx ordered UA negative BCx ordered on ceftriaxone for ?SBP ( has AMS in setting of cirrhosis), menningitis less likely as she has no neck stiffness or menningeal signs on exam. if no improvement in mental status or worsening fever and leukocytosis consider LP will transfer her to step down CXR - No acute cardiopulm disease on admission (3) Liver cirrhosis Current Visit: Yes Status: Chronic Assessment and Plan: secondary to fatty liver obtain records from [facility] No ascitis demonstrable on exam if RUQ US positive for ascitis will get IR consulted for paracentesis (4) Pancytopenia Current Visit: Yes Status: Acute Assessment and Plan: follows with Dr. Dyson as OP H/H at baseline platelets at baseline leukopenia resolved (5) DVT prophylaxis Current Visit: Yes Status: Acute Assessment and Plan: scds - Time Spent with Patient Total time spent is greater than 50% in coordination of care (as documented) at patient's floor/unit and/or counseling patient: Internal Medicine: Result - Labs CBC & Chem 7: 07/01/18 04:21 07/01/18 04:21 Labs: Short CBC 07/01/18 Range/Units 04:21 WBC 5.9 D (4.3-11.1) K/mcL Hgb 11.0 L (11.5-15.4) g/dL Hct 32.4 L (35.3-44.9) % Plt Count 70 L (140-400) K/mcL Neutrophils # 3.7 (1.6-8.9) K/mcL BMP 07/01/18 04:21 Sodium 144 Potassium 3.2 L Chloride 106 Carbon Dioxide 27 BUN 12 Creatinine 0.65 Glucose 102 Calcium 9.1 Liver Function 07/01/18 Range/Units 04:21 Total Bilirubin 2.5 H (0.3-1.0) mg/dL AST 383 H (13-39) Units/L ALT 47 (7-52) Units/L Alkaline Phosphatase 83 (34-104) Units/L Albumin 3.1 L (3.5-5.7) g/dL Urine 06/30/18 Range/Units 18:07 Urine Color Dark Yellow (Yellow) Urine Clarity Clear (Clear) Urine pH 7.0 (5.0-8.0) pH Units Ur Specific [place] 1.011 (1.010-1.025) Urine Protein Negative (Neg-Trace) mg/dL Urine Glucose (UA) Normal (Normal) mg/dL - ABG Interpretation ABG results: PT/INR, D-dimer PT 14.7 Seconds (9.4-12.1) H 06/30/18 09:40 Consult Discharge Plan - Plan Referrals: Maty Celestin [Resident] - 07/28/18 4:20 pm Andrae Rodriguez Jr, MD [Primary Care Provider] - 07/15/18 9:15 am James Tristan DO [Partnered Physician] - 09/30/18 9:45 am (2) Sepsis Qualifiers: Sepsis type: sepsis due to unspecified organism Qualified Code(s): A41.9 - Sepsis, unspecified organism (3) Liver cirrhosis Qualifiers: Hepatic cirrhosis type: unspecified hepatic cirrhosis Ascites presence: unsp ecified Qualified Code(s): K74.60 - Unspecified cirrhosis of liver
[2018-07-01] MEDS: cefTRIAXone 2,000 MG in Water for inj. (sterile) 20 ML 20 ML IVP SCH (14:05)
[2018-07-02 04:53] LABS: Basophils % 0.4 %; Eosinophils % 2.3 %; Hemoglobin 10.9 g/dL (11.5-15.4)
[2018-07-02 04:56] LABS: Eosinophils # 0.1 K/mcL (0.0-0.6); Hematocrit 32.2 % (35.3-44.9); Immature Granulocytes % 0.8 % (0-4); Immature Platelets 1.4 % (1.1-6.1); Lymphocytes # 1.7 K/mcL (0.6-4.6); Lymphocytes % 31.7 %; Mean Corpuscular HGB Conc 33.9 g/dL (31.6-35.5); Mean Corpuscular Hemoglobin 32.4 pg (28.0-33.3); Mean Corpuscular Volume 95.8 fL (83.0-100.0); Mean Platelet Volume 10.2 fL (9.4-12.4); Monocytes # 0.6 K/mcL (0.0-1.3); Monocytes % 11.3 %; Neutrophils # 2.8 K/mcL (1.6-8.9); Red Blood Count 3.36 M/mcL (3.82-4.97); Segmented Neutrophils % 53.5 %
[2018-07-02 05:01] LABS: Platelet Count 62 K/mcL (140-400)
[2018-07-02 05:10] LABS: BUN/Creatinine Ratio 17 (6-26); Blood Urea Nitrogen 11 mg/dL (8-23); Calcium 8.5 mg/dL (8.6-10.3); Carbon Dioxide 28 mEq/L (23-29); Chloride 105 mEq/L (98-107); Glucose 121 mg/dL (70-105); Osmolality,Calculated 291 (280-300); Sodium 140 mEq/L (136-145); eGFR For Non-African Americans > 60 (> 60)
--- NOTE | 2018-07-02 08:11 | Neurology Progress Note ---
Addendum entered and electronically signed by Abhi Junior DO 07/02/18 08:48: Original Note: <Abhi Junior - Last Filed: 07/02/18 08:11> Date of Encounter: 07/02/18 Time of Encounter: 08:11 Assessment and Plan (1) Acute metabolic encephalopathy Current Visit: Yes Status: Acute (2) Liver cirrhosis Current Visit: Yes Status: Chronic Qualifiers: Hepatic cirrhosis type: unspecified hepatic cirrhosis Ascites presence: unspecified Qualified Code(s): K74.60 - Unspecified cirrhosis of liver (3) DVT prophylaxis Current Visit: Yes Status: Acute (4) Pancytopenia Current Visit: Yes Status: Acute (5) Sepsis Current Visit: Yes Status: Acute Qualifiers: Sepsis type: sepsis due to unspecified organism Qualified Code(s): A41.9 - Sepsis, unspecified organism Subjective Principal diagnosis: Hepatic encephalopathy Interval history: I will patient continues to be restless she is verbal today and answering simple questions. She even stated she would like to go home. Patient had 3 bowel movements in the last 24 hours. Objective - Constitutional Vitals: Temp Pulse Resp BP Pulse Ox 98.2 F 101 16 145/72 97 07/02/18 06:11 07/02/18 06:11 07/02/18 06:11 07/02/18 06:11 07/02/18 06:11 - Neurological Exam Motor Examination: Present: full strength in all major muscle groups Motor examination - left side: 5/5: deltoids, biceps, triceps, wrist flexion, wrist extension, hip flexors, oliving machine operator, quadriceps, tibialis Anterior, toe extension (EHL), plantarflexion Reflex and gait examination: intact Mental Status Examination: Present: awake, alert, oriented to person, oriented to place, follows commands appropriately, answers questions appropriately Cranial nerve examination: Present: PERRL, EOMI, no facial asymmetry is present Results - Laboratory Findings CBC and BMP: 07/02/18 04:26 07/02/18 04:26 Abnormal lab findings: Abnormal lab results RBC 3.36 M/mcL (3.82-4.97) L 07/02/18 04:26 Hgb 10.9 g/dL (11.5-15.4) L 07/02/18 04:26 Hct 32.2 % (35.3-44.9) L 07/02/18 04:26 Plt Count 62 K/mcL (140-400) L 07/02/18 04:26 PT 14.7 Seconds (9.4-12.1) H 06/30/18 09:40 APTT 38.1 Seconds (26.0-36.0) H 06/30/18 09:40 Potassium 3.0 mEq/L (3.5-5.1) L 07/02/18 04:26 Glucose 121 mg/dL (70-105) H 07/02/18 04:26 POC Glucose 129 mg/dL (70-99) H 07/01/18 18:39 Calcium 8.5 mg/dL (8.6-10.3) L 07/02/18 04:26 Total Bilirubin 2.5 mg/dL (0.3-1.0) H 07/01/18 04:21 Direct Bilirubin 0.5 mg/dL (0.0-0.2) H 06/30/18 09:40 AST 383 Units/L (13-39) H 07/01/18 04:21 Ammonia 96 mcmol/L (16-53) H 07/01/18 12:22 Albumin 3.1 g/dL (3.5-5.7) L 07/01/18 04:21 Globulin 3.8 g/dL (2.4-3.5) H 07/01/18 04:21 Albumin/Globulin Ratio 0.8 (1.1-2.2) L 07/01/18 04:21 Urine Blood Trace (Negative) H 06/30/18 18:07 Urine Bilirubin Small (Negative) H 06/30/18 18:07 Urine Urobilinogen >=8.0 mg/dL (Normal) H 06/30/18 18:07 Ur Squamous Epith Cells Many per lpf (None-Few) H 06/30/18 18:07 Consult Discharge Plan - Plan Referrals: Maty Celestin [Resident] - 07/28/18 4:20 pm Andrae Rodriguez Jr, MD [Primary Care Provider] - 07/15/18 9:15 am James Tristan DO [Partnered Physician] - 09/30/18 9:45 am <Shira Larose I - Last Filed: 07/02/18 08:47> Date of Encounter: 07/02/18 Assessment and Plan (1) Acute metabolic encephalopathy Current Visit: Yes Status: Acute Overall improvement in mental status alert awake and oriented. Able to follow simple commands able to have conversation. Not as restless as she was. CT scan of the head was negative for any acute infarct. EEG earlier as an outpatient consistent with encephalopathy. Her mental status changes was likely related to hyperammonemia and from her live r dysfunction strongly recommend that we should continue her on lactulose to avoid any further hyperammonemia as it may cause her mental status changes to be worse again. No evidence of a stroke and no evidence of seizures Clinically stable from neurology standpoint other treatment is as per primary team We will sign off call if needed Objective - Constitutional Vitals: Temp Pulse Resp BP Pulse Ox 98.2 F 101 16 145/72 97 07/02/18 06:11 07/02/18 06:11 07/02/18 06:11 07/02/18 06:11 07/02/18 06:11 Results - Laboratory Findings CBC and BMP: 07/02/18 04:26 07/02/18 04:26 Abnormal lab findings: Abnormal lab results RBC 3.36 M/mcL (3.82-4.97) L 07/02/18 04:26 Hgb 10.9 g/dL (11.5-15.4) L 07/02/18 04:26 Hct 32.2 % (35.3-44.9) L 07/02/18 04:26 Plt Count 62 K/mcL (140-400) L 07/02/18 04:26 PT 14.7 Seconds (9.4-12.1) H 06/30/18 09:40 APTT 38.1 Seconds (26.0-36.0) H 06/30/18 09:40 Potassium 3.0 mEq/L (3.5-5.1) L 07/02/18 04:26 Glucose 121 mg/dL (70-105) H 07/02/18 04:26 POC Glucose 129 mg/dL (70-99) H 07/01/18 18:39 Calcium 8.5 mg/dL (8.6-10.3) L 07/02/18 04:26 Total Bilirubin 2.5 mg/dL (0.3-1.0) H 07/01/18 04:21 Direct Bilirubin 0.5 mg/dL (0.0-0.2) H 06/30/18 09:40 AST 383 Units/L (13-39) H 07/01/18 04:21 Ammonia 96 mcmol/L (16-53) H 07/01/18 12:22 Albumin 3.1 g/dL (3.5-5.7) L 07/01/18 04:21 Globulin 3.8 g/dL (2.4-3.5) H 07/01/18 04:21 Albumin/Globulin Ratio 0.8 (1.1-2.2) L 07/01/18 04:21 Urine Blood Trace (Negative) H 06/30/18 18:07 Urine Bilirubin Small (Negative) H 06/30/18 18:07 Urine Urobilinogen >=8.0 mg/dL (Normal) H 06/30/18 18:07 Ur Squamous Epith Cells Many per lpf (None-Few) H 06/30/18 18:07
[2018-07-02] MEDS: Insulin LISPRO 300 UNITS/3 ML VIAL SQ SCH ×4 (08:53→20:16)
[2018-07-02] MEDS: Furosemide 40 MG TABLET PO SCH ×2 (08:55→17:01)
[2018-07-02] MEDS: Metoprolol XL (24 HR) Succ 25 MG TAB.ER.24H PO SCH (08:55)
[2018-07-02] MEDS: *HR* LORazepam 0.5 MG TABLET PO SCH ×2 (08:55→21:57)
[2018-07-02] MEDS: Lactulose Oral Soln 20 GM/30 ML UDC PO SCH ×2 (08:56→21:35)
--- NOTE | 2018-07-02 10:37 | Gastroenterology Consult Note ---
Date of Encounter: 07/02/18 Time of Encounter: 10:14 - Assessment and plan (1) Acute metabolic encephalopathy Current Visit: Yes Status: Acute Assessment and plan: Pt presented to ED with AMS CT head negative for acute process Ammonia 206 (06/30) has now dt to 96 (07/01), per neurology note pt appears to be improving Abdomen US negative for ascites. SBP unlikely Etiology likely secondary to hepatic encephalopathy in the setting of cirrhosis Plan: Pt should continue Rifamixin 550mg PO BID Titrate up lactulose to achieve 2-3 soft BM a day Pt follows with Dr. Gamino at [facility] in [place]. Pt was offered f/u here at [facility] but she prefers to continue her care in [place]. (2) Liver cirrhosis Current Visit: Yes Status: Chronic Assessment and plan: 12/02 Ultrasound of liver reports cirrhosis with no focal mass Likely due to NAFLD MELD Score 13 Child Chacon Score Class B Pt denies alcohol use. Negative hepatitis panel (01/2018) Pt denies hx of varices, unsure of last EGD. Pt denies family hx of liver dz Complicated by hepatic encephalopathy, plan as above. No current evidence of ascites, should pt appear to be fluid overloaded, consider adding Spirinolactone to diuretic tx. Will attempt to obtain past medical records from [facility] Qualifiers: Hepatic cirrhosis type: unspecified hepatic cirrhosis Ascites presence: unspecified Qualified Code(s): K74.60 - Unspecified cirrhosis of liver - Time Spent With Patient Total time spent is greater than 50% in coordination of care (as documented) at patient's floor/unit and/or counseling patient: 25 - 35 minutes GI History of Present Illness - Data of Consult Consult date: 07/02/18 Requesting Physician: Wale Potts MD - Consult Narrative Reason for consult: Hepatic Encephalopathy History of present illness: Ms. Romero is a 63 year old female with hx of cirrhosis and fatty liver dz originally presenting to the Emergency Department 2 days ago with AMS beginning that morning (06/30). Pt had one episode of nonbloody emesis (06/28) after eating and at this point stopped taking her lactulose treatment for the following two days. Additionally, pt has been taking half of her prescribed dosage of lactulose for the past month. Pt has recently been prescribed Rifamixin and has started taking this medication for the past month as well. Pt regularly follows up with Dr. Gamino in [place] to manage her condition. Pt has had one other episode of AMS in the past, over a month ago, at which time Rifamixin was added to her treatment regimen. At this point she also felt she was having an allergic reaction to her lactulose with facial swelling, however was advised by Dr. Rodriguez to stick with the medication. Pt typically lies on the side of constipation, having a BM every 2-3 days. These movements are thick in consistency with a chalky appearance. Since arriving to the hospital pt has been having 3 movements per day with her most recent being of diarrhea. She denies hematochezia or melena at any point. She currently denies N/V, abdominal pain, headache and states she is slightly constipated. Pt is present and states pt has improved significantly throughout her stay with her mental status has returned to what it was a month ago. He feels that she had been declining significantly over the past month prior to admission. 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 Humphreys. Past Med Surg Social Fam HX - Past Medical History Medical history: diabetes, GERD, hypertension, liver disease, other Additional medical history: IBS Psychiatric history: depression, previous psychiatric hospitalization - Past Surgical History Surgical History: appendectomy, cholecystectomy, herniorrhaphy, other - Social History Smoking Status: Never smoker Smokeless Tobacco Status: No Alcohol use: none Drug use: none - Family History Father Hx Family Cancer: Yes (Nasopharyngeal Carcinoma) Mother Hx Family Cardiac Disorders: Yes - Gastrointestinal Gastrointestinal: Present: as per HPI, change in bowel habits, constipation. Absent: abdominal pain, bloating, diarrhea, heartburn, hematemesis, hematochezia, melena, nausea, vomiting - Constitutional Vitals: Temp Pulse Resp BP Pulse Ox 99.1 F 100 16 148/68 97 07/02/18 10:10 07/02/18 10:10 07/02/18 10:10 07/02/18 10:10 07/02/18 10:10 - Neurological Exam Neurological exam: Present: alert, altered, oriented X3. Absent: no focal de ficits (Slight tremor of RUE, improved from previous days) - Psychiatric Psychiatric exam: Present: normal affect, normal mood - Skin Skin exam: Present: dry, intact Results - Labs CBC & Chem 7: 07/02/18 04:26 07/02/18 04:26 Labs: Last Result Calcium 8.5 mg/dL (8.6-10.3) L 07/02/18 04:26 Troponin I < 0.03 ng/mL (< 0.04) 06/30/18 09:40 Triglycerides 82 mg/dL (< 150) 07/01/18 04:21 Entire Visit Hgb 10.9 g/dL (11.5-15.4) L 07/02/18 04:26 Hct 32.2 % (35.3-44.9) L 07/02/18 04:26 PT 14.7 Seconds (9.4-12.1) H 06/30/18 09:40 Total Bilirubin 2.5 mg/dL (0.3-1.0) H 07/01/18 04:21 AST 383 Units/L (13-39) H 07/01/18 04:21 ALT 47 Units/L (7-52) 07/01/18 04:21 Ammonia 96 mcmol/L (16-53) H 07/01/18 12:22 - ABG ABG results: PT/INR, D-dimer PT 14.7 Seconds (9.4-12.1) H 06/30/18 09:40 - Impressions Impressions Head CT 07/01/18 09:41 IMPRESSION: No acute intracranial abnormality. Stable exam. D/ / Suraj Jiménez MD / Suraj Jiménez MD Interpreting Provider: Suraj Jiménez MD Abdomen Ultrasound 07/01/18 20:00 IMPRESSION: No evidence of ascites in any of the 4 quadrants. Right upper quadrant solid organs not well evaluated due to limited visualization. D/ / Isaias Osuna MD / Isaias Osuna MD Interpreting Provider: Isaias Osuna MD Consult Discharge Plan - Plan Referrals: Maty Celestin [Resident] - 07/28/18 4:20 pm Andrae Rodriguez Jr, MD [Primary Care Provider] - 07/09/18 9:15 am James Tristan DO [Partnered Physician] - 09/30/18 9:45 am
[2018-07-02] MEDS: *HR* OxyCODONE/APAP 10/325 TABLET PO PRN ×2 (13:56→21:57)
[2018-07-02] MEDS: cefTRIAXone 2,000 MG in Water for inj. (sterile) 20 ML 20 ML IVP SCH (13:56)
--- NOTE | 2018-07-02 16:56 | Internal Med Progress Note ---
Hospitalist Progress Note - Encounter Date of Encounter: 07/02/18 Time of Encounter: 08:53 - Subjective Interval History: Patient seen and examined this morning. No acute overnight events. More alert and oriented. Less restless. No fevers chills nausea vomiting diarrhea. - Exam Vitals: Temp Pulse Resp BP Pulse Ox 98.7 F 98 16 109/61 94 07/02/18 16:17 07/02/18 16:17 07/02/18 16:17 07/02/18 16:17 07/02/18 16:17 Exam: General: In no acute distress. Less restless. Obese. ENT: Icteric sclera Respiratory exam: CTAB. Distant breath sounds due to obesity, no accessory muscle use, rales, rhonchi, wheezes Cardiovascular exam: tachycardia, +S1, +S2. no murmur, gallop, rubs. GI/Abdominal exam: Non-tender, Non-distended, normal bowel sounds, soft, no peritoneal signs. Extremities exam: full ROM, no pedal edema, warm, pulses palpable in b/l lower extremities. no calf tenderness Neurological exam: CN II-XII intact, AO X1, no focal deficits. no pronater drift, facial droop, speech deficit Skin exam: warm, dry, intact - Assessment and Plan (1) Acute metabolic encephalopathy Current Visit: Yes Status: Acute (2) Liver cirrhosis Current Visit: Yes Status: Chronic (3) DVT prophylaxis Current Visit: Yes Status: Acute (4) Pancytopenia Current Visit: Yes Status: Acute (5) Sepsis Current Visit: Yes Status: Acute - Summary of Assessment and Plan Summary of Assessment and Plan: Acute metabolic encephalopathy - Improved as compared to yesterday after started on lactulose and having BM - Ammonia level 206 trended down to 96 - EEG done in 06/29/2018 showed moderate generalized encephalopathy, commonly associated with hepatic or renal etiologies - Head CT without any abnormality - c/w lactulose TID to achieve 3-4 bowel movements daily - Likely related to hepatic disease. - c/w aricept Hypokalemia - Will replete 80 mEq. SIRS - Initially with tachycardic, tachypnic, low grade fever of 100.1 - blood culture NGTD - UA unremarkable. CXR without cardiopulm disease on admission - Started on ceftriaxone for ?SBP ( has AMS in setting of cirrhosis). Will finish 5 day course of antibiotics for possible SBP, however suspicion Liver cirrhosis - secondary to fatty liver - No evidence of ascites in any 4 quadrants - c/w lactulose, rifaximin, lasix Pancytopenia - H/H stable - platelets at baseline - leukopenia resolved - Likely related to cirrhosis - follows with Dr. Dyson as Outpatient. Monitor for now. Depression - c/w home medications DVT prophylaxis - scds PT recommends HH for safety evaluation and assessment of functional ability in home. - Time Spent with Patient Total time spent is greater than 50% in coordination of care (as documented) at patient's floor/unit and/or counseling patient: Internal Medicine: Result - Labs CBC & Chem 7: 07/02/18 04:26 07/02/18 04:26 Labs: Short CBC 07/02/18 Range/Units 04:26 WBC 5.2 (4.3-11.1) K/mcL Hgb 10.9 L (11.5-15.4) g/dL Hct 32.2 L (35.3-44.9) % Plt Count 62 L (140-400) K/mcL Neutrophils # 2.8 (1.6-8.9) K/mcL BMP 07/02/18 04:26 Sodium 140 Potassium 3.0 L Chloride 105 Carbon Dioxide 28 BUN 11 Creatinine 0.63 Glucose 121 H Calcium 8.5 L - ABG Interpretation ABG results: PT/INR, D-dimer PT 14.7 Seconds (9.4-12.1) H 06/30/18 09:40 - Impressions Impressions Head CT 07/01/18 09:41 IMPRESSION: No acute intracranial abnormality. Stable exam. D/ / Suraj Jiménez MD / Suraj Jiménez MD Interpreting Provider: Suraj Jiménez MD Abdomen Ultrasound 07/01/18 20:00 IMPRESSION: No evidence of ascites in any of the 4 quadrants. Right upper quadrant solid organs not well evaluated due to limited visualization. D/ / Isaias Osuna MD / Isaias Osuna MD Interpreting Provider: Isaias Osuna MD Consult Discharge Plan - Plan Referrals: SabiMaty [Resident] - 07/28/18 4:20 pm Andrae Rodriguez Jr, MD [Primary Care Provider] - 07/09/18 9:15 am James Tristan DO [Partnered Physician] - 09/30/18 9:45 am (2) Liver cirrhosis Qualifiers: Hepatic cirrhosis type: unspecified hepatic cirrhosis Ascites presence: unspecified Qualified Code(s): K74.60 - Unspecified cirrhosis of liver (5) Sepsis Qualifiers: Sepsis type: sepsis due to unspecified organism Qualified Code(s): A41.9 - Sepsis, unspecified organism
[2018-07-03 04:20] LABS: Sodium 140 mEq/L (136-145)
[2018-07-03 04:21] LABS: Alanine Aminotransferase 115 Units/L (7-52); Albumin 2.9 g/dL (3.5-5.7); Albumin/Globulin Ratio 0.8 (1.1-2.2); Alkaline Phosphatase 74 Units/L (34-104); Aspartate Amino Transferase 567 Units/L (13-39); BUN/Creatinine Ratio 16 (6-26); Bilirubin,Total 1.8 mg/dL (0.3-1.0); Blood Urea Nitrogen 11 mg/dL (8-23); Calcium 8.3 mg/dL (8.6-10.3); Carbon Dioxide 29 mEq/L (23-29); Chloride 104 mEq/L (98-107); Globulin 3.6 g/dL (2.4-3.5); Glucose 133 mg/dL (70-105); Osmolality,Calculated 291 (280-300); Total Protein 6.5 g/dL (6.4-8.9); eGFR For Non-African Americans > 60 (> 60)
[2018-07-03] MEDS: Insulin LISPRO 300 UNITS/3 ML VIAL SQ SCH ×2 (08:27→12:38)
[2018-07-03] MEDS: Metoprolol XL (24 HR) Succ 25 MG TAB.ER.24H PO SCH (08:29)
[2018-07-03] MEDS: Lactulose Oral Soln 20 GM/30 ML UDC PO SCH (08:30)
[2018-07-03] MEDS: *HR* LORazepam 0.5 MG TABLET PO SCH (08:30)
[2018-07-03] MEDS: Furosemide 40 MG TABLET PO SCH (08:30)
[2018-07-03] MEDS: *HR* OxyCODONE/APAP 10/325 TABLET PO PRN (12:38)
--- NOTE | 2018-07-03 13:35 | Discharge Summary ---
- NOTES TO OUTPATIENT PROVIDER Notes to Outpatient Provider: Follow-up urine function tests as well as BMP. Will need follow-up with GI. Orders not resulted at time of discharge: Pending orders 07/01/18 14:14 Culture,Blood [BC] Stat Date of Encounter: 07/03/18 Time of Encounter: 13:34 - Discharge Diagnosis (1) Acute metabolic encephalopathy Priority: Primary Status: Acute (2) Liver cirrhosis Priority: Secondary Status: Chronic Qualifiers: Hepatic cirrhosis type: unspecified hepatic cirrhosis Ascites presence: unspecified Qualified Code(s): K74.60 - Unspecified cirrhosis of liver (3) DVT prophylaxis Priority: Secondary Status: Acute (4) Pancytopenia Priority: Secondary Status: Acute (5) SIRS (systemic inflammatory response syndrome) Priority: Secondary Status: Acute (6) Hypokalemia Priority: Secondary Status: Acute (7) Depression Priority: Secondary Status: Chronic Qualifiers: Depression Type: unspecified Qualified Code(s): F32.9 - Major depressive disorder, single episode, unspecified Hospital course: Ms. Romero is a 63 year old female past medical history of hypertension, depression, anxiety, fatty liver with cirrhosis came in with altered mental status. Found to have elevated ammonia level in 200s. EEG done on 06/29 showed generalized encephalopathy commonly seen in hepatic or renal etiology. Head CT was unremarkable. Given patient initial presentation with tachycardia and tachypnea and low grade fever patient was started on ceftriaxone for suspicion of SBP. Abdominal ultrasound did not reveal significant ascites. Neurology and GI consult was obtained. Patient has not been taking her lactulose as prescribed. Patient was resumed on lactulose to have 3-4 bowel movements. Patient mentation improved after having bowel movements. Patient's ammonia improved as well as in mentation or next 2 days. Patient most likely had altered mental status from liver cirrhosis. She required potassium supplementation while she was on diuresis. Her liver function test increased while in the hospital however her mentation was improved. Patient wanted to go home. Given suspicion of SBP was minimal and potential that ceftriaxone was contributing to elevated transaminase it was discontinued. Patient agreed to follow up with primary care provider to follow-up there function tests as well as potassium levels. Patient would be discharged home to follow-up with primary care within 1 week. Discussed about compliance with lactulose and how to dose it. Patient was started on potassium supplementation on discharge. Discharge discussed with: patient, family, nurse, social work - Time Spent with Patient Total time spent providing and/or coordinating discharge services: Greater than 30 minutes (43) - Discharge Medications Prescriptions: Potassium Chloride 20 meq PO DAILY 30 Days #30 tab.er.prt Home Medications: Escitalopram [Lexapro] 20 mg PO QAM 07/14/16 [History] GlipiZIDE XL (24 HR) [Glucotrol XL] 20 mg PO BID 07/14/16 [History] Hyoscyamine SL [Levsin Sl] 0.125 - 0.25 mg SL QID PRN 07/14/16 [History] Omeprazole [PriLOSEC] 40 mg PO BID 07/14/16 [History] Docusate Sodium [Stool Softener] 100 mg PO BID PRN 12/01/17 [History] LORazepam [Ativan] 0.5 mg PO BID PRN 12/01/17 [History] OxyCODONE/APAP 10/325 [Percocet 10/325 MG] 1 tab PO Q3H PRN 12/01/17 [History] Donepezil [Aricept] 10 mg PO HS 06/30/18 [History] Ferrous Sulfate 325 mg PO DAILY 06/30/18 [History] Furosemide [Lasix] 40 mg PO BID 06/30/18 [History] Insulin NPH Human Isophane [Novolin N] 10 unit SQ QAM PRN 06/30/18 [History] Metoprolol Succinate 25 mg PO DAILY 06/30/18 [History] Promethazine [Phenergan] 25 mg PO QID PRN 06/30/18 [History] Quetiapine Fumarate [Seroquel] 100 mg PO DAILY 06/30/18 [History] Quetiapine Fumarate [Seroquel] 200 mg PO HS 06/30/18 [History] Rifaximin [Xifaxan] 550 mg PO BID 06/30/18 [History] Lactulose 20 ml PO BID 30 Days #1 bottle 07/03/18 [Rx] Potassium Chloride 20 meq PO DAILY 30 Days #30 tab.er.prt 07/03/18 [Rx] Allergies/Adverse Reactions: Allergy/AdvReac Type Severity Reaction Status Date / Time Penicillins Allergy Hives Verified 06/30/18 09:39 aripiprazole [From Abilify] AdvReac See Verified 06/30/18 09:39 Comments ziprasidone [From Geodon] AdvReac See Verified 06/30/18 09:39 Comments novacain Allergy Hives Uncoded 06/30/18 09:39 Date of admission: 06/30/18 12:59 Primary care physician: Andrae Rodriguez Jr, MD Consults: 06/30/18 12:23 Consult to Neurology [CONS] Routine Consulting Provider: Neurology [facility] Reason for Consult: Encephaolpathy, patient is known to your team, and following up as outpatient Call Completed: Yes 07/01/18 09:18 Consult to Gastroenterology [CONS] Routine Consulting Provider: Gastroenterology Anur[facility] Reason for Consult: hepatic encephalopathy Call Completed: No 07/02/18 08:37 Consult to Sawmill Equipment [employer] [CONS] Routine Reason for SW Consult: Discharge planning Discharging clinician: Adilson Zimmerman - Constitutional Vitals: Temp Pulse Resp BP Pulse Ox 98.5 F 95 14 109/60 92 07/03/18 10:41 07/03/18 10:41 07/03/18 10:41 07/03/18 10:41 07/03/18 10:41 Exam: General: In no acute distress.Morbidly Obese. Respiratory exam: CTAB. Distant breath sounds due to obesity, no accessory muscle use, rales, rhonchi, wheezes Cardiovascular exam: RRR, +S1, +S2. no murmur, gallop, rubs. GI/Abdominal exam: Non-tender, Non-distended, normal bowel sounds, soft, no peritoneal signs. Extremities exam: full ROM, no pedal edema, warm, pulses palpable in b/l lower extremities. no calf tenderness Neurological exam: CN II-XII intact, AO X1, no focal deficits. no pronater drift, facial droop, speech deficit Skin exam: warm, dry, intact - Patient Status Disposition: Home, Self-Care Condition: Fair - Discharge Instructions Follow Up With: Maty Celestin [Resident] - 07/28/18 4:20 pm Andrae Rodriguez Jr, MD [Primary Care Provider] - 07/09/18 9:15 am James Tristan DO [Partnered Physician] - 09/30/18 9:45 am - VTE Documentation of Mechanical Device: Intermittent pneumatic compression device
--- NOTE | 2018-07-03 13:46 | Physician Discharge Referral ---
Home Health/Hosp Referral Info Transfer to: Home Health - Diagnosis (1) Acute metabolic encephalopathy Status: Acute (2) Liver cirrhosis Status: Chronic (3) DVT prophylaxis Status: Acute (4) Pancytopenia Status: Acute (5) SIRS (systemic inflammatory response syndrome) Status: Acute (6) Hypokalemia Status: Acute (7) Depression Status: Chronic - Respiratory Orders Smoking Cessation: Smoking cessation has been advised. For more information, call the [place] Tobacco Quit Line at 7-441-ZKTS-NOW. - Services Needed Following services are medically necessary services: Physical Therapy (for safety evaluation and assessment of funtional ability in home) - Transfer Medications Prescriptions: Potassium Chloride 20 meq PO DAILY 30 Days #30 tab.er.prt Home Medications: Escitalopram [Lexapro] 20 mg PO QAM 07/14/16 [History] GlipiZIDE XL (24 HR) [Glucotrol XL] 20 mg PO BID 07/14/16 [History] Hyoscyamine SL [Levsin Sl] 0.125 - 0.25 mg SL QID PRN 07/14/16 [History] Omeprazole [PriLOSEC] 40 mg PO BID 07/14/16 [History] Docusate Sodium [Stool Softener] 100 mg PO BID PRN 12/01/17 [History] LORazepam [Ativan] 0.5 mg PO BID PRN 12/01/17 [History] OxyCODONE/APAP 10/325 [Percocet 10/325 MG] 1 tab PO Q3H PRN 12/01/17 [History] Donepezil [Aricept] 10 mg PO HS 06/30/18 [History] Ferrous Sulfate 325 mg PO DAILY 06/30/18 [History] Furosemide [Lasix] 40 mg PO BID 06/30/18 [History] Insulin NPH Human Isophane [Novolin N] 10 unit SQ QAM PRN 06/30/18 [History] Metoprolol Succinate 25 mg PO DAILY 06/30/18 [History] Promethazine [Phenergan] 25 mg PO QID PRN 06/30/18 [History] Quetiapine Fumarate [Seroquel] 100 mg PO DAILY 06/30/18 [History] Quetiapine Fumarate [Seroquel] 200 mg PO HS 06/30/18 [History] Rifaximin [Xifaxan] 550 mg PO BID 06/30/18 [History] Lactulose 20 ml PO BID 30 Days #1 bottle 07/03/18 [Rx] Potassium Chloride 20 meq PO DAILY 30 Days #30 tab.er.prt 07/03/18 [Rx] Allergies/Adverse Reactions: Allergy/AdvReac Type Severity Reaction Status Date / Time Penicillins Allergy Hives Verified 06/30/18 09:39 aripiprazole [From Abilify] AdvReac See Verified 06/30/18 09:39 Comments ziprasidone [From Geodon] AdvReac See Verified 06/30/18 09:39 Comments novacain Allergy Hives Uncoded 06/30/18 09:39 Certification: Further, I certify that my clinical findings support that this patient is homebound (i.e. absences from home require considerable and taxing effort and are for medical reasons or [facility] or infrequently or short duration when for other reasons) because: Homebound Reason: Patient requires assistance of a person or device to safely leave home Attestation: My signature below is to certify that this patient is under my care and that I, or nurse practitioner, or a physician's chef assistant working with me, has a [id number] encounter with this patient.
[2018-07-03 14:18] VITALS: BP 95/55
== END 2018-07-03 16:41 | disposition home or self-care (01) | DRG 441 ==
LOC: 2ANU 09:27 → EMEROOARM 09:27 → 3BNU 12:16 → SUATTDRO 12:59 → 3BNU 13:05 → 2NNU 07-01 17:54 → 3ANU 07-02 22:13
PROVIDERS: ADMIT Internal Medicine; ATTEND Internal Medicine